=== PATIENT | male | born 1970 | race Caucasian/White ===

== ENCOUNTER 2024-09-11 05:50 | Day surgery (SDC) | payer MEDICAID ==
--- NOTE | 2024-09-04 13:52 | ELECTROCARDIOGRAPH REPORT ---
[facility] Test Date: 2024-09-04 Test Time: 13:48:14 Pat Name: STEFANI NAVARRETE Department: [facility]-PRE-OP Patient ID: [id number] Room: Gender: M Wellness Coach: CHARLENE : 1970 Requested By: MARCELLO ANAND Order Number: [id number] Reading MD: Dr. JARAD Kohli Measurements Intervals Bates Rate: 54 P: 53 OK: 152 QRS: 80 QRSD: 100 T: 31 QT: 413 QTc: 392 Interpretive Statements Sinus bradycardia Probable left atrial enlargement ST elev, probable normal early repol pattern Electronically Signed On 09-04-2024 17:36:[address] JARAD Kohli Please click the below link to view image of tracing.
[2024-09-04 14:06] LABS: BASOPHILS # (AUTO) 0.2 X10'3 (0-0.2); EOSINOPHILS # (AUTO) 0.1 X10'3 (0-0.9); LYMPHOCYTES # (AUTO) 1.1 X10'3 (1.1-4.8); NEUTROPHILS # (AUTO) 5.6 X10'3 (1.8-7.7); PRE OP WHITE BLOOD COUNT 7.5 10'3 (4.8-10.8)
[2024-09-04 14:08] LABS: EOSINOPHILS % (AUTO) 1.9 % (0-6); MEAN CORPUSCULAR HEMOGLOBIN 30.1 PG (27.0-31.0); MEAN CORPUSCULAR HGB CONC 33.5 g/dL (33.0-36.5); MEAN CORPUSCULAR VOLUME 89.8 FL (78-98); MONOCYTES # (AUTO) 0.5 X10'3 (0-0.9); MONOCYTES % (AUTO) 6.2 % (2-12); PRE OP HEMATOCRIT 42.5 % (42.0-52.0); PRE OP HEMOGLOBIN 14.2 g/dL (14.0-17.9); PRE OP PLATELET COUNT 275 X10'3 (140-440); RED BLOOD COUNT 4.73 X10'6 (4.70-6.10); RED CELL DISTRIBUTION WIDTH 14.1 % (11.5-14.5)
[2024-09-04 14:15] LABS: BASOPHILS % (AUTO) 2.1 % (0-1); NEUTROPHILS % (AUTO) 75.5 % (42-75)
[2024-09-04 14:20] LABS: ALBUMIN 3.6 G/DL (3.4-5.0); ALBUMIN/GLOBULIN RATIO 1.2 (1.1-1.5); ALKALINE PHOSPHATASE 103 IU/L (46-116); BLOOD UREA NITROGEN 10 MG/DL (7-18); BUN/CREATININE RATIO 8.8 (10.0-20.0); CALCIUM 8.3 MG/DL (8.5-10.1); CHLORIDE 108 MMOL/L (99-107); CREATININE 1.13 MG/DL (0.60-1.10); PRE OP ALT 16 U/L (30-65); PRE OP ANION GAP 7 (8-16); PRE OP AST 14 U/L (10-37); PRE OP BILIRUB, TOTAL 0.5 MG/DL (0.0-1.0); PRE OP GLUCOSE 96 MG/DL (70-104); PRE OP POTASSIUM 3.6 MMOL/L (3.4-5.1); PRE OP SODIUM 144 MMOL/L (135-145); TOTAL CARBON DIOXIDE 29.1 MMOL/L (24-32); TOTAL PROTEIN 6.7 G/DL (6.4-8.2); eGFR 68 ML/MIN
[~2024-09-11] VITALS: Ht 188 cm; Wt 94.7 kg
[2024-09-11] VITALS (9 sets, daily range): BP systolic 113–143; BP diastolic 65–86; PULSE 51–94; RESP 12–18; TEMP 98; O2SAT 96–100
[~2024-09-11 05:50] MED LIST: NO HOME MEDS
[2024-09-11] MEDS: famotidine 20mg tablet PO ONE (06:17)
[2024-09-11] MEDS: ringers solution, lacted 1,000 ML IV SCH (06:17)
[2024-09-11] MEDS: clindamycin-Cleocin 900mg/D5W 50 ML IV ONE (06:17)
[2024-09-11] MEDS ORDERED: BUPIVAcaine 2.5mg/ml inj 50ml vial (contains preservative) ONE (06:44)
[2024-09-11] MEDS ORDERED: LIDOcaine 1% 30ml preserv. free vial ONE (06:45)
[2024-09-11] MEDS: midazolam 1 mg/ML 2ml injection IV ONE (07:11)
[2024-09-11] MEDS ORDERED: ondansetron/PF 4mg/2ml inj IV PRN (07:15)
[2024-09-11] MEDS ORDERED: meperidine/PF 25mg/ml syringe IV PRN (07:15)
[2024-09-11] MEDS ORDERED: HYDROmorphone/PF 0.2 MG/ML SYRINGE IV PRN ×2 (07:15)
[2024-09-11] MEDS ORDERED: morphine 4 MG/ML inj SYRINge IV PRN (07:15)
[2024-09-11] MEDS ORDERED: labetalol 20mg/4ml (5mg/ml) syringe IV PRN (07:15)
[2024-09-11] MEDS ORDERED: ringers solution, lacted 1,000 ML IV SCH (07:15)
[2024-09-11] MEDS ORDERED: hydrALAZINE 20mg/ml inj. IV PRN (07:15)
[2024-09-11] MEDS ORDERED: morphine 2 MG/ML inj. syringe IV PRN (07:15)
[2024-09-11] MEDS ORDERED: proCHLORperazine 10 MG/2 ml inj IV PRN (07:15)
[2024-09-11] MEDS ORDERED: midazolam 1 mg/ML 2ml injection ONE (07:21)
[2024-09-11] MEDS ORDERED: fentaNYL /PF 50mcg/ml 5ml ampule ONE (07:42)
[2024-09-11] MEDS ORDERED: dexamethasone sod phosphate 4mg/ml inj. ONE (07:42)
[2024-09-11] MEDS ORDERED: rocuronium 10mg/ml inj IV ONE (07:43)
[2024-09-11] MEDS ORDERED: LIDOcaine 2% (20mg/ml) 5ml vial ONE (07:43)
[2024-09-11] MEDS ORDERED: ondansetron/PF 4mg/2ml inj ONE (07:43)
[2024-09-11] MEDS ORDERED: propofol inj 20 ML IV ONE (07:43)
[2024-09-11] MEDS ORDERED: sevoflurane 250ml liquid IH ONE (07:48)
[2024-09-11] MEDS ORDERED: ePHEDrine 50MG/ML INJ. ONE (07:51)
[2024-09-11] MEDS: BUPIVAcaine/PF 2.5 mg/ml (0.25%) 30ml vial IJ ONE (07:51)
[2024-09-11] MEDS ORDERED: neostigmine methylsulfate 1 MG/ML 10ml vial ONE (08:45)
[2024-09-11] MEDS ORDERED: glycopyrrolate 0.2mg/ml inj ONE (08:45)
--- NOTE | 2024-09-11 09:32 | OPERATIVE REPORT ---
Operative Report Providers to CC: CASPER ANAND MD ~ Date of Procedure: Sep 11, 2024 Pre-Operative Diagnosis: Right inguinal hernia Post-Operative Diagnosis SAME as PRE-Op Procedure Performed Robotic assisted, laparoscopic right inguinal hernia repair with mesh 1 cm umbilical hernia repair Surgeon: Casper Anand MD FACS Linting Machine Operator None Anesthesiologist: Faizan Leon Type of Anesthesia: General Findings: Very, very large inguinal-scrotal indirect right inguinal hernia 1 cm umbilical hernia repair Wound class I Complications None Prosthetics\Implants used: Extra-large Dextile mesh Estimated Blood Loss: Minimal Specimen Removed: None Description of Procedure: Patient was brought to the operating room and identified by the nursing staff and the attending physician. Patient was placed supine and general anesthesia was induced. Patient's abdomen was prepped and draped in standard sterile fashion. Preoperative antibiotics were given. Supraumbilical incision was made to allow for standard Horn entry technique. During dissection, a 1 cm fascial defect was encountered with a small amount of herniated preperitoneal fat. The fascial edges were freshened and fascial defect used for Horn port placement. Laparoscope was inserted after insufflation. Bilateral, 8.5 mm robotic trochars were placed under laparoscopic guidance following administration of local anesthetic. The da Lee robotic arm was docked to the patient and instruments placed intra-abdominally under laparoscopic visualization. The left hemipelvis was examined and showed no evidence of left inguinal hernia. An indirect hernia was identified on the right side. Hernia sac was very large in size, extending deep into the right hemiscrotum. A rent was created in the peritoneum from the median umbilical fold and carried out laterally towards the anterior superior iliac spine. Preperitoneal flap was created and carried down to the symphysis pubis. The retropubic space of Retzius was developed and the bladder swept medially. Dissection was carried out laterally until an indirect hernia sac was identified. This was moderate in size. Hernia sac was completely dissected away from the cord structures and reduced. The critical view of the myopectineal orifice was achieved. Dissection was carried out laterally to allow space for mesh deployment. An extra-large, Dextile mesh and suture was passed intra-abdominally. Mesh was laid in the preperitoneal space covering both indirect, direct, and potential femoral and obturator hernias. Mesh laid without wrinkles or folds. 3 tacking sutures using 0 Ethibond were used to fix the mesh at the symphysis pubis, rectus abdominis, and just anterior to the anterior superior iliac spine. The peritoneal rent was then closed with running, 2/0, absorbable locking suture. [place] were retrieved. Abdomen was deflated and secondary trochars removed. Fascia at the umbilical port site was closed with a combination of 0 Ethibond and 0 Vicryl sutures thus repairing the 1 cm umbilical hernia defect. Skin incisions were closed with 4-0 Monocryl sutures in a subcuticular fashion. Sterile dressings were applied. Patient was awakened and taken to the postane sthesia care unit in stable condition. Counts repoted as correct: Yes CASPER ANAND MD Sep 11, 2024 09:31
[2024-09-11] MEDS: acetaminophen 1,000mg/100ml IV 100 ML IV PRN (09:38)
[2024-09-11] MEDS: HYDROcodone/acetaminophen 5mg/325mg tablet PO PRN (10:13)
== END 2024-09-11 10:30 | disposition home or self-care (01) ==
LOC: PAS 05:50
PROVIDERS: ATTEND Surgery
DX: K40.90 Unilateral inguinal hernia, without obstruction or gangrene, not specified as recurrent (principal); K42.9 Umbilical hernia without obstruction or gangrene; I10 Essential (primary) hypertension; Z98.890 Other specified postprocedural states; F41.9 Anxiety disorder, unspecified; Z79.899 Other long term (current) drug therapy; Z88.0 Allergy status to penicillin
CPT/HCPCS: 36415; 49591; 49650; 80053; 82948; 85025; 93005; C1781; J0131; J1100; J2003; J2250; J2405; J2704; J2710; J3010; J3490; J7030; J7120; S2900; Z7506; Z7508; Z7512; A4215; A4618